=== PATIENT | male | born 1945 | race Caucasian/White ===

== ENCOUNTER 2016-11-23 15:48 | Observation (INO) | payer MEDICARE, OTHER ==
[~2016-11-23 15:48] MED LIST: ASPI325T PO; CHOL1CAP32 PO; HYDR-2768 PO; HYDR25TA5 PO; MAGN400C2 PO; MEDR4PAK3 PO; METH750T2 PO; OMEP20TA PO; PERC5TAB12 PO; POTA-163 PO; PRAV20 PO; PRAV20TA2 PO; PRIL20CA PO; SERT-129 PO; SERT25TA83 PO
[2016-11-23 18:15] VITALS: BP 154/70; PULSE 55; RESP 18; TEMP 99; O2SAT 96
[2016-11-23] MEDS ORDERED: HYDROmorphone HCL PF 1 MG/ML VIAL IV PRN (19:00)
[2016-11-23] MEDS ORDERED: ONDANSETRON HCL 4 MG/2 ML VIAL IVP PRN (19:00)
[2016-11-23] MEDS ORDERED: ACETAMINOPHEN 325 MG TAB PO PRN ×2 (19:00)
[2016-11-23] MEDS ORDERED: cloNIDine HCL 0.1 MG TAB PO PRN (19:00)
[2016-11-23] MEDS ORDERED: RESP: ALBUTEROL 0.63 MG/3 ML NEB (PRN) NEB (19:00)
[2016-11-23] MEDS ORDERED: SENNOSIDES 8.6 MG TAB PO PRN (19:00)
[2016-11-23] MEDS ORDERED: NALOXONE HCL 0.4 MG/ML AMP IV PRN (19:00)
[2016-11-23] MEDS ORDERED: SODIUM CHLORIDE 0.9% FLUSH 10 ML FLUSH IV FLUSH PRN (19:00)
[2016-11-23] MEDS ORDERED: ENALAPRILAT 1.25 MG/ML VIAL IV PRN (19:00)
[2016-11-23 20:00] VITALS: BP 141/65; PULSE 57; RESP 18; TEMP 97.3; O2SAT 94
[2016-11-23] MEDS: SODIUM CHLORIDE 0.9% FLUSH 10 ML FLUSH IV FLUSH SCH (20:09)
[2016-11-23] MEDS ORDERED: DIAZEPAM 5 MG TAB PO PRN (20:45)
[2016-11-23] MEDS ORDERED: HYDROmorphone HCL PF 1 MG/ML VIAL IV PUSH ONE (20:45)
[2016-11-23] MEDS: DOCUSATE SODIUM 50 MG/SENNA 8.6 MG TAB PO SCH (21:00)
[2016-11-23] MEDS ORDERED: PRAVASTATIN SOD 20 MG TAB PO SCH (21:00)
[2016-11-23 21:48] VITALS: O2SAT 92
[2016-11-24] VITALS (8 sets, daily range): BP systolic 112–137; BP diastolic 58–67; PULSE 60–68; RESP 16–21; TEMP 97–98.5; O2SAT 92–96
[2016-11-24] MEDS: PRAVASTATIN SOD 40 MG TAB PO SCH ×2 (00:08→20:35)
[2016-11-24] MEDS: SERTRALINE HCL 100 MG TAB PO SCH ×2 (00:08→20:35)
[2016-11-24] MEDS: MAGNESIUM OXIDE 400 MG TAB PO SCH (08:21)
[2016-11-24] MEDS: CHOLECALCIFEROL (VIT D3) 1000 UNIT TAB PO SCH (08:21)
[2016-11-24] MEDS: DOCUSATE SODIUM 50 MG/SENNA 8.6 MG TAB PO SCH ×2 (08:21→20:36)
[2016-11-24] MEDS: HYDROCHLOROTHIAZIDE 25 MG TAB PO SCH (08:22)
[2016-11-24] MEDS: PANTOPRAZOLE SOD 20 MG DELAYED RELEASE TAB PO SCH (08:22)
[2016-11-24] MEDS: POTASSIUM CHLORIDE 20 MEQ CONTROLLED RELEASE TAB PO SCH (08:22)
[2016-11-24] MEDS: SODIUM CHLORIDE 0.9% FLUSH 10 ML FLUSH IV FLUSH SCH ×2 (08:30→20:36)
[2016-11-24 08:49] LABS: BASOPHIL % 0.5 % (0.0-2.0); EOSINOPHIL # 0.3 TH/MM3 (0-0.4); EOSINOPHIL % 3.3 % (0.0-4.0); HEMATOCRIT 38.9 % (39.0-51.0); HEMO FLAGS DIFF FINAL; LYMPH % 31.8 % (9.0-44.0); LYMPHOCYTE # 2.7 TH/MM3 (1.0-4.8); MEAN CORPUSCULAR HEMOGLOBIN 31.1 PG (27.0-34.0); MEAN CORPUSCULAR HGB CONC 34.2 % (32.0-36.0); MONO % 7.1 % (0.0-8.0); NEUT % 57.3 % (16.0-70.0); PLATELET COUNT 142 TH/MM3 (150-450); RED BLOOD COUNT 4.28 MIL/MM3 (4.50-5.90); RED CELL DISTRIBUTION WIDTH 14.2 % (11.6-17.2); WHITE BLOOD COUNT 8.7 TH/MM3 (4.0-11.0)
--- NOTE | 2016-11-24 08:52 | HHI.HP ---
HPI Service [facility] Hospitalists Primary Care Physician Unknown Admission Diagnosis Diagnoses: (1) T9 vertebral fracture (2) Acute midline thoracic back pain (3) Benign hypertension (4) Hyperlipidemia Chief Complaint: Mid back pain Travel History International Travel<30 Days: No Contact w/Intl Traveler <30 Da: No Traveled to Known Affected Are: No History of Present Illness -year-old male with a history of hyperlipidemia, hypertension, previous history of prostate cancer was brought to the ED and subsequently admitted to [facility] for evaluation of an acute onset of mid low back pain status post mechanical fall, from the top of her refrigerator 7 feet down to the ground. Patient states he has crv8uvia the ladder then got on the top of the refrigerator in order to clean a dirty vent. He lost his balance and fell down leading on his mid back without any head trauma. He rated the pain 10/10 in intensity. The fall was witnessed by patient's . Patient was able to get up and walked. He had no bladder or bowel dysfunction. The thoracic lumbar spine CT in the ED reveals a small acute horizontal nondisplaced fracture of the anterior superior T9 vertebral body. Patient was seen this morning, and states he was unable to walk on his own and continues to complain of severe low back pain. Review of Systems Except as stated in HPI: all other systems reviewed are Neg Past Family Social History Past Medical History Asthma: Yes Cardiovascular Problems: Yes (htn) High Cholesterol: Yes Cerebrovascular Accident: Yes GERD: Yes Hiatal Hernia: Yes Hypertension: Yes Inguinal Hernia: Yes Medical other: Yes (prostate CA) Respiratory: Yes (asthma) Immunizations Current: Yes Radiation Therapy: Yes (2010) Sleep Apnea: Yes \ \ \ Past Surgical History Abdominal Surgery: Yes (hernia) Genitourinary Surgery: Yes (prostate radiation) Tonsillectomy: Yes Other Surgery: Yes (vika inguinal hernia) \ \ Reported Medications Magnesium Oxide 400 Mg Cap 400 Mg PO DAILY Sertraline (Sertraline HCl) 100 Mg Tab 100 Mg PO DAILY Pravastatin 20 Mg Tab 20 Mg PO DAILY Aspirin 325 Mg Tab 325 Mg PO DAILY D3-1000 (Cholecalciferol) 1,000 Unit Cap 1,000 Units PO BID Potassium Chloride ER (Potassium Chloride) 20 Meq Tab 20 Meq PO BID Omeprazole 20 Mg Tab 20 Mg PO DAILY Hydrochlorothiazide 25 Mg Tab 25 Mg PO DAILY Allergies: Coded Allergies: No Known Allergies (Unverified , 03/24/16) Family History Father had Alzheimer disease Social History Alcohol Use: No Tobacco Use: No Substance Use: No \ \ Physical Exam Vital Signs Vital Signs Date Time Temp Pulse Resp B/P Pulse Ox O2 Delivery O2 Flow Rate FiO2 11/24/16 08:00 97.7 68 18 137/64 95 11/24/16 06:32 97.0 60 21 122/60 95 11/24/16 00:00 98.1 60 20 112/58 94 11/23/16 21:48 92 21 11/23/16 20:00 97.3 57 18 141/65 94 11/23/16 18:15 99.0 55 18 154/70 96 Physical Exam GENERAL: This is a well-nourished, well-developed patient, in no apparent distress. SKIN: No rashes, ecchymoses or lesions. Cool and dry. HEAD: Atraumatic. Normocephalic. No temporal or scalp tenderness. EYES: Pupils equal round and reactive. Extraocular motions intact. No scleral icterus. No injection or drainage. ENT: Nose without bleeding, purulent drainage or septal hematoma. Throat without erythema, tonsillar hypertrophy or exudate. Uvula midline. Airway patent. NECK: Trachea midline. No JVD or lymphadenopathy. Supple, nontender, no meningeal signs. CARDIOVASCULAR: Regular rate and rhythm without murmurs, gallops, or rubs. RESPIRATORY: Clear to auscultation. Breath sounds equal bilaterally. No wheezes , rales, or rhonchi. GASTROINTESTINAL: Abdomen soft, non-tender, nondistended. No hepato-splenomegaly , or palpable masses. No guarding. MUSCULOSKELETAL: Extremities without clubbing, cyanosis, or edema. No joint tenderness, effusion, or edema noted. No calf tenderness. Negative Homans sign bilaterally. NEUROLOGICAL: Awake and alert. Cranial nerves II through XII intact. Motor and sensory grossly within normal limits. Five out of 5 muscle strength in all muscle groups. Normal speech. Assessment and Plan Problem List: (1) T9 vertebral fracture ICD Code: S22.079A Status: Acute (2) Benign hypertension ICD Code: I10 Status: Acute (3) Hyperlipidemia ICD Code: E78.5 Status: Acute (4) Acute midline thoracic back pain ICD Code: M54.6 Status: Acute Assessment and Plan 70-year-old man with T9 vertebral body fracture Acute midline thoracic back pain CT thoracic spine noted and reviewed by me with finding of a small acute horizontal nondisplaced fracture of the anterior superior T9 vertebral body CT lumbar spine noted and reviewed by me without any acute fracture Neurosurgery consultation pending Nonoperable and conservative management Start Neurontin, Flexeril when necessary and Pamelor TLSO brace, continue parenteral pain medication/analgesic/anti emetic PT consult to treat and eval Mild hypokalemia Replace electrolytes and monitor Hypertension, hyperlipidemia Continue outpatient medications DVT prophylaxis: Bilateral SCDs Code Status Full code Discussed Condition With Patient J Carlos Nazario MD Nov 24, 2016 08:52
[2016-11-24 09:15] LABS: ANION GAP 10 MEQ/L (5-15); AST (GOT) 47 U/L (15-37); BICARBONATE 29.9 MEQ/L (21.0-32.0); BLOOD UREA NITROGEN 23 MG/DL (7-18); CHLORIDE 100 MEQ/L (98-107); GLOMERULAR FILTRATION RATE 60 ML/MIN (>89); POTASSIUM 3.4 MEQ/L (3.5-5.1); SODIUM (NA) 140 MEQ/L (136-145)
[2016-11-24 09:20] LABS: ALKALINE PHOSPHATASE 70 U/L (45-117); ALT (GPT) 62 U/L (12-78); CREATINE KINASE 180 U/L (39-308); TOTAL BILIRUBIN ADULT 0.6 MG/DL (0.2-1.0)
[2016-11-24] MEDS ORDERED: MORPHINE SULFATE 4 MG/ML INJ IV PUSH PRN (10:45)
--- NOTE | 2016-11-24 10:47 | PD.CONS ---
[facility] Service Neurosurgery Consult Requested By [facility] Reason for Consult Status post fall with thoracic fracture Primary Care Physician Unknown History of Present Illness This is a 17 year-old male with history of hyperlipidemia, hypertension, prostate cancer, was brought to [facility] emergency room for evaluation of an acute onset of mid low back pain. He reports that he suffered a severe fall from the top of the refrigerator 7 feet down to the ground. Apparently he climbed the ladder then got on the top of the refrigerator in order to clean a dirty vent. He lost his balance and fell down leading on his mid back. He denies any head trauma. No loss of consciousness no seizure activity reported no incontinence of stool or urine. He developed severe pain on the medial thoracic region He rated the pain 10/10 in intensity. The fall was witnessed by patient's . Apparently he was able to get up and walked. He had no bladder or bowel dysfunction. The thoracic lumbar spine CT showed a small acute horizontal nondisplaced fracture of the anterior superior T9 vertebral body. A neurosurgical consultation was requested \ Physical Exam Vital Signs Vital Signs Date Time Temp Pulse Resp B/P Pulse Ox O2 Delivery O2 Flow Rate FiO2 11/24/16 08:00 97.7 68 18 137/64 95 11/24/16 06:32 97.0 60 21 122/60 95 11/24/16 00:00 98.1 60 20 112/58 94 11/23/16 21:48 92 21 11/23/16 20:00 97.3 57 18 141/65 94 11/23/16 18:15 99.0 55 18 154/70 96 Physical Exam GENERAL: This is a well-nourished, well-developed patient, in no apparent distress. SKIN: No rashes, ecchymoses or lesions. Cool and dry. HEAD: Atraumatic. Normocephalic. No temporal or scalp tenderness. EYES: Pupils equal round and reactive. Extraocular motions intact. No scleral icterus. No injection or drainage. ENT: Nose without bleeding, purulent drainage or septal hematoma. Throat without erythema, tonsillar hypertrophy or exudate. Uvula midline. Airway patent. NECK: Trachea midline. No JVD or lymphadenopathy. Supple, nontender, no meningeal signs. CARDIOVASCULAR: Regular rate and rhythm without murmurs, gallops, or rubs. RESPIRATORY: Clear to auscultation. Breath sounds equal bilaterally. No wheezes , rales, or rhonchi. GASTROINTESTINAL: Abdomen soft, non-tender, nondistended. No hepato-splenomegaly , or palpable masses. No guarding. MUSCULOSKELETAL: Extremities without clubbing, cyanosis, or edema. No joint tenderness, effusion, or edema noted. No calf tenderness. Negative Homans sign bilaterally. NEUROLOGICAL: Awake and alert. Cranial nerves II through XII intact. Motor and sensory grossly within normal limits. Five out of 5 muscle strength in all muscle groups. Normal speech. Assessment and Plan Problem List: (1) T9 vertebral fracture ICD Code: S22.079A Status: Acute (2) Benign hypertension ICD Code: I10 Status: Acute (3) Hyperlipidemia ICD Code: E78.5 Status: Acute (4) Acute midline thoracic back pain ICD Code: M54.6 Status: Acute Assessment and Plan 70-year-old man with T9 vertebral body fracture Acute midline thoracic back pain CT thoracic spine noted and reviewed by me with finding of a small acute horizontal nondisplaced fracture of the anterior superior T9 vertebral body CT lumbar spine noted and reviewed by me without any acute fracture Neurosurgery consultation pending Nonoperable and conservative management Start Neurontin, Flexeril when necessary and Pamelor TLSO brace, continue parenteral pain medication/analgesic/anti emetic PT consult to treat and eval Review of Systems Constitutional: DENIES: Diaphoretic episodes, Fatigue, Fever, Weight gain, Weight loss, Chills, Dizziness, Change in appetite, Night Sweats Endocrine: DENIES: Heat/cold intolerance, Polydipsia, Polyuria, Polyphagia Eyes: DENIES: Blurred vision, Diplopia, Eye inflammation, Eye pain, Vision loss , Photosensitivity, Double Vision Ears, nose, mouth, throat: DENIES: Tinnitus, Hearing loss, Vertigo, Nasal discharge, Oral lesions, Throat pain, Hoarseness, Ear Pain, Running Nose, Epistaxis, Sinus Pain, Toothache, Odynophagia Respiratory: DENIES: Apneas, Cough, Snoring, Wheezing, Hemoptysis, Sputum production, Shortness of breath Cardiovascular: DENIES: Chest pain, Palpitations, Syncope, Dyspnea on Exertion , PND, Lower Extremity Edema, Orthopnea, Claudication Gastrointestinal: DENIES: Abdominal pain, Black stools, Bloody stools, Constipation, Diarrhea, Nausea, Vomiting, Difficulty Swallowing, Anorexia Musculoskeletal: COMPLAINS OF: Joint pain, Back pain, DENIES: Muscle aches, Stiffness, Joint Swelling, Neck pain Integumentary: DENIES: Abnormal pigmentation, Nail changes, Pruritus, Rash Hematologic/lymphatic: DENIES: Bruising, Lymphadenopathy Immunologic/allergic: DENIES: Eczema, Urticaria Neurologic: DENIES: Abnormal gait, Headache, Localized weakness, Paresthesias, Seizures, Speech Problems, Tremor, Poor Balance Past Family Social History Allergies: Coded Allergies: No Known Allergies (Unverified , 03/24/16) Past Medical History Asthma: Yes Cardiovascular Problems: Yes (htn) High Cholesterol: Yes Cerebrovascular Accident: Yes GERD: Yes Hiatal Hernia: Yes Hypertension: Yes Inguinal Hernia: Yes Medical other: Yes (prostate CA) Respiratory: Yes (asthma) Immunizations Current: Yes Radiation Therapy: Yes (2010) Sleep Apnea: Yes \ \ \ Past Surgical History Hernia repair prostate radiation Tonsillectomy: vika inguinal hernia repair Reported Medications Magnesium Oxide 400 Mg Cap 400 Mg PO DAILY Sertraline (Sertraline HCl) 100 Mg Tab 100 Mg PO DAILY Pravastatin 20 Mg Tab 20 Mg PO DAILY Aspirin 325 Mg Tab 325 Mg PO DAILY D3-1000 (Cholecalciferol) 1,000 Unit Cap 1,000 Units PO BID Potassium Chloride ER (Potassium Chloride) 20 Meq Tab 20 Meq PO BID Omeprazole 20 Mg Tab 20 Mg PO DAILY Hydrochlorothiazide 25 Mg Tab 25 Mg PO DAILY Active Ordered Medications Current Medications Albuterol Sulfate (Albuterol Neb) 0.63 mg Q4HR NEB PRN NEB sob; Start 11/23/16 at 19:00 Enalaprilat (Vasotec Inj) 1.25 mg Q6H PRN IV SBP> OR = 180, DBP> OR = 100; Start 11/23/16 at 19:00 Clonidine (Catapres) 0.1 mg Q6H PRN PO SBP> OR = 180, DBP> OR = 100; Start 11/23 at 19:00 Sodium Chloride (NS Flush) 2 ml UNSCH PRN IV FLUSH FLUSH AFTER USING IV ACCESS ; Start 11/23/16 at 19:00 Sodium Chloride (NS Flush) 2 ml BID IV FLUSH Last administered on 11/23/16 20: 09; Start 11/23/16 at 21:00 Acetaminophen (Tylenol) 650 mg Q4H PRN PO TEMP > 100.4; Start 11/23/16 at 19:00 Ondansetron HCl (Zofran Inj) 4 mg Q6H PRN IVP NAUSEA OR VOMITING; Start at 19:00 Acetaminophen (Tylenol) 650 mg Q6H PRN PO PAIN SCALE 1 TO 2; Start 11/23/16 at 19:00 Oxycodone HCl (Roxicodone) 10 mg Q4H PRN PO PAIN SCALE 6 TO 10 Last administered on 11/24/16 12:19; Start 11/23/16 at 19:00 Hydromorphone HCl (Dilaudid Pf Inj) 0.2 mg Q3H PRN IV BREAKTHROUGH PAIN; Start 11/23/16 at 19:00 Oxycodone HCl (Roxicodone) 5 mg Q4H PRN PO PAIN SCALE 3 TO 5 Last administered on 11/23/16 20:22; Start 11/23/16 at 19:00 Naloxone HCl (Narcan Inj) 0.4 mg UNSCH PRN IV SEE LABEL COMMENTS; Start at 19:00 Senna/Docusate Sodium (Doris-Colace) 1 tab BID PO Last administered on 11/24/16 08:21; Start 11/23/16 at 21:00 Sennosides (Senokot) 17.2 mg Q12H PRN PO MODERATE - SEVERE CONSTIPATION; Start 11/23/16 at 19:00 Diazepam (Valium) 5 mg Q8H PRN PO MUSCLE SPASM Last administered on 11/24/16 08 :25; Start 11/23/16 at 20:45; Stop 11/24/16 at 10:47; Status DC Hydrochlorothiazide (Hydrodiuril) 25 mg DAILY PO Last administered on 11/24/16 08:22; Start 11/24/16 at 09:00 Potassium Chloride (KCl) 40 meq DAILY PO Last administered on 11/24/16 08:22; Start 11/24/16 at 09:00 Pravastatin Sodium (Pravachol) 40 mg HS PO ; Start 11/23/16 at 21:00; Stop at 21:00; Status DC Sertraline HCl (Zoloft) 100 mg HS PO Last administered on 11/24/16 00:08; Start 11/23/16 at 21:00 Cholecalciferol (Vitamin D3) 2,000 units DAILY PO Last administered on 08:21; Start 11/24/16 at 09:00 Magnesium Oxide (Mag-Ox) 400 mg DAILY PO Last administered on 11/24/16 08:21; Start 11/24/16 at 09:00 Pantoprazole Sodium (Protonix) 20 mg DAILY PO Last administered on 11/24/16 08: 22; Start 11/24/16 at 09:00 Hydromorphone HCl (Dilaudid Pf Inj) 0.5 mg ONCE ONCE IV PUSH Last administered on 11/24/16 00:09; Start 11/23/16 at 20:45; Stop 11/23/16 at 20:57; Status DC Pravastatin Sodium (Pravachol) 40 mg HS PO Last administered on 11/24/16 00:08 ; Start 11/23/16 at 21:00 Aspirin (Aspirin) 325 mg DAILY PO ; Start 11/25/16 at 09:00 Morphine Sulfate (Morphine Inj) 2 mg Q8H PRN IV PUSH BREAKTHROUGH PAIN; Start 11/24/16 at 10:45 Gabapentin (Neurontin) 100 mg TID PO Last administered on 11/24/16 12:49; Start 11/24/16 at 13:00 Cyclobenzaprine HCl (Flexeril) 5 mg Q8H PRN PO muscle spams; Start 11/24/16 at 10:45 Nortriptyline HCl (Pamelor) 25 mg HS PO ; Start 11/24/16 at 21:00 Family History Father had Alzheimer disease Social History Social History Alcohol Use: No Tobacco Use: No Substance Use: No Physical Exam Vital Signs Vital Signs Date Time Temp Pulse Resp B/P Pulse Ox O2 Delivery O2 Flow Rate FiO2 11/24/16 08:00 97.7 68 18 137/64 95 11/24/16 06:32 97.0 60 21 122/60 95 11/24/16 00:00 98.1 60 20 112/58 94 11/23/16 21:48 92 21 11/23/16 20:00 97.3 57 18 141/65 94 11/23/16 18:15 99.0 55 18 154/70 96 Physical Exam Mr Panchal is alert, awake and oriented to time, place and person. Speech is fluent. Cranial nerve examination demonstrates the pupils to be equal, round, and reactive to light. Extra-ocular movements are intact. Facial motor and sensory function are normal and symmetrical. Gross hearing is decreased, bilaterally. The uvula is midline and elevates symmetrically with the soft palate. Sternocleidomastoid and trapezius muscles have normal and symmetrical strength. Other cranial nerves are intact. Neck is soft and supple. Cervical spine has a decreased range of motion in anterior flexion, extension, lateral bending, and rotation without pain. There is no tenderness to palpation to the spinous processes or paraspinal muscles. Muscle testing reveals normal bulk and tone overall without rigidity, spasticity , fasciculations, or atrophy. Muscle strength is 5/5 in all muscle groups of both upper extremities including deltoid, biceps, triceps, brachioradialis, wrist extension and can top setter. In the lower extremities, strength is 5/5 in both iliopsoas, quadriceps, hamstrings, plantar flexion, dorsiflexion, and extensor hallicus longus. Sensory examination is intact to light touch and sharp/dull discrimination in both the upper and lower extremities, symmetrically. Deep tendon reflexes are 2+ and symmetrical in the biceps, triceps, and brachioradialis, bilaterally, in the upper extremities. In the lower extremities , the patellar and Achilles are 2+, bilaterally. There is a bilateral plantar flexion response. Hoffmanns sign is negative. There is no clonus or other abnormal reflexes noted. Cerebellar examination is intact to [id number] test, rapid rhythmic alternating motion. There is no dysmetria, dysdiadochokinesia, truncal ataxia Laboratory Laboratory Tests Test 11/24/16 07:14 White Blood Count 8.7 Red Blood Count 4.28 Hemoglobin 13.3 Hematocrit 38.9 Mean Corpuscular Volume 91.0 Mean Corpuscular Hemoglobin 31.1 Mean Corpuscular Hemoglobin 34.2 Concent Red Cell Distribution Width 14.2 Platelet Count 142 Mean Platelet Volume 9.3 Neutrophils (%) (Auto) 57.3 Lymphocytes (%) (Auto) 31.8 Monocytes (%) (Auto) 7.1 Eosinophils (%) (Auto) 3.3 Basophils (%) (Auto) 0.5 Neutrophils # (Auto) 5.0 Lymphocytes # (Auto) 2.7 Monocytes # (Auto) 0.6 Eosinophils # (Auto) 0.3 Basophils # (Auto) 0.0 CBC Comment DIFF FINAL Differential Comment Sodium Level 140 Potassium Level 3.4 Chloride Level 100 Carbon Dioxide Level 29.9 Anion Gap 10 Blood Urea Nitrogen 23 Creatinine 1.20 Estimat Glomerular Filtration 60 Rate Random Glucose 116 Calcium Level 8.8 Total Bilirubin 0.6 Aspartate Amino Transf 47 (AST/SGOT) Alanine Aminotransferase 62 (ALT/SGPT) Alkaline Phosphatase 70 Total Creatine Kinase 180 Total Protein 6.6 Albumin 3.6 Result Diagram: 11/24/16 0714 11/24/16 0714 Attending Statement Neuro. I have reviewed his clinical and radiological findings. Start neuro checks in a serial fashion. TLSO brace fpr stabilization. Recommend follow up MRI of thoracic spine Pulmonary. aggressive pulmonary toilette, nasotracheal suction, and breathing treatments with nebulizers. PT and OT evaluation Nutrition. Oral diet Renal. monitor closely urine output, BUN and creatinine Endocrine. Monitor serial Acu checks and SSI as needed in detail ID monitor for signs of infection Protonix for stress ulcer prophylaxis Zaid hose and SCD's for DVT prophylaxis Tavo Hunter MD Nov 24, 2016 10:47
[2016-11-24] MEDS: GABAPENTIN 100 MG CAP PO SCH ×2 (12:49→17:37)
[2016-11-24] MEDS ORDERED: GADODIAMIDE PF 287 MG/ML 20 ML VIAL (for RAD MRI) IV ONE (16:21)
[2016-11-24] MEDS: CYCLOBENZAPRINE HCL 10 MG TAB PO PRN (16:44)
--- NOTE | 2016-11-24 20:07 | RADRPT ---
EXAM DATE/TIME: 11/24/2016 16:00 [facility] COMPARISON: CT THORACIC SPINE W/O CONTRAST, November 23, 2016, 12:35. INDICATIONS : Back pain. CONTRAST: 20 cc Omniscan (gadodiamide) IV MEDICAL HISTORY : Carcinoma, prostate. Hypercholesterolemia. SURGICAL HISTORY : Tonsillectomy. Hernia repair. ENCOUNTER: Initial ACUITY: 1 day PAIN SCORE: 5/10 LOCATION: [facility] TECHNIQUE: Multiplanar multisequence MRI of the thoracic spine was performed. FINDINGS: The examination was performed to characterize multiple findings as seen on CT thoracic spine includin g superior endplate compression deformities of T3, T5, and T9 as well as a rounded lucency in the pos terior T8 vertebral body. There is T2 prolongation in the superior endplates of T1, T2, T3, and anterior T9. There is evidence of some enhancement on the postcontrast images in this same areas. The findings suggest acute or puckett bacute compression deformities at these levels. At the T5 level, there is no signal abnormality seen in the superior endplate compression deformity s uggesting that this is old. At T8, there is a rounded area of signal abnormality in the posterior one third of vertebral body patience suring 1.3 cm characterize by mild decrease signal on T1, fairly intense enhancement on postcontrast and with moderate T2 prolongation. At T8-9, there is a right parasagittal protrusion of the disc whi ch causes focal indentation on the thecal sac and some deviation of the thoracic cord. No signal abn ormality within the substance of the cord and no abnormal enhancement within the deviated cord. Epid ural impression measures 5 mm in AP dimension. The thoracic cord has a normal configuration and no abnormal areas of enhancement seen. CONCLUSION: 1. T2 prolongation and enhancement superior end plates of T1, T2, T3, and T9 suggests acute or subacu te compression deformities. 2. The T5 compression deformity has normal signal characteristics and is probably old. 3. There are 2 abnormalities at the T8-9 level, the rounded lucent lesion in the posterior T8 vertebr al body demonstrates both T2 prolongation and significant contrast enhancement. There is also a righ t parasagittal protrusion of the disc at T8-9 which does cause impression on the cord with deviation, but no narrowing of the cord diameter. The enhancing area is located to the left of the protrusion. The patient has history of prostate cancer in the enhancing lesion could represent a metastatic dep osit. The T8-9 disc protrusion may be acute and associated with the acute compression deformity of s uperior endplate of T9. Scout Antonio MD on November 24, 2016 at 19:49 Board Certified Radiologist. This report was verified electronically.
[2016-11-24] MEDS ORDERED: NORTRIPTYLINE HCL 25 MG CAP PO SCH (21:00)
[2016-11-25] VITALS: BP 163/75; PULSE 62; RESP 18; TEMP 99.2; O2SAT 98
[2016-11-25 04:00] VITALS: BP 139/67; PULSE 65; RESP 20; TEMP 97.7; O2SAT 91
[2016-11-25 08:00] VITALS: BP 159/67; PULSE 75; RESP 18; TEMP 97.1; O2SAT 94
[2016-11-25 08:20] LABS: BICARBONATE 31.3 MEQ/L (21.0-32.0); POTASSIUM 3.1 MEQ/L (3.5-5.1)
[2016-11-25] MEDS: HYDROCHLOROTHIAZIDE 25 MG TAB PO SCH (08:49)
[2016-11-25] MEDS: POTASSIUM CHLORIDE 20 MEQ CONTROLLED RELEASE TAB PO SCH (08:49)
[2016-11-25] MEDS: MAGNESIUM OXIDE 400 MG TAB PO SCH (08:49)
[2016-11-25] MEDS: CYCLOBENZAPRINE HCL 10 MG TAB PO PRN (08:50)
[2016-11-25] MEDS: GABAPENTIN 100 MG CAP PO SCH (08:50)
[2016-11-25] MEDS: PANTOPRAZOLE SOD 20 MG DELAYED RELEASE TAB PO SCH (08:50)
[2016-11-25] MEDS: CHOLECALCIFEROL (VIT D3) 1000 UNIT TAB PO SCH (08:50)
[2016-11-25] MEDS: SODIUM CHLORIDE 0.9% FLUSH 10 ML FLUSH IV FLUSH SCH (08:51)
[2016-11-25] MEDS: DOCUSATE SODIUM 50 MG/SENNA 8.6 MG TAB PO SCH (08:51)
[2016-11-25] MEDS ORDERED: ASPIRIN 325 MG TAB PO SCH (09:00)
[2016-11-25 11:51] VITALS: BP 146/76; PULSE 66; RESP 18; TEMP 97.4; O2SAT 93
--- NOTE | 2016-11-25 11:56 | HHI.PR ---
Subjective Remarks Follow-up T9 vertebral body fracture 11/25/16-patient seen and examined, reports significant improvement of mid low back pain. Patient able to ambulate without any assistance. States he would like to go home. Case discussed with neurosurgery Dr. Hunter this morning. Objective Vitals Vital Signs Date Time Temp Pulse Resp B/P Pulse Ox O2 Delivery O2 Flow Rate FiO2 11/25/16 08:00 97.1 75 18 159/67 94 11/25/16 04:00 97.7 65 20 139/67 91 11/25/16 00:00 99.2 62 18 163/75 98 11/24/16 20:00 98.5 66 18 128/67 92 11/24/16 19:56 96 21 11/24/16 15:52 97.5 65 16 122/61 96 11/24/16 12:00 97.5 62 18 135/61 93 I/O 11/24/16 11/24/16 11/24/16 11/25/16 11/25/16 11/25/16 07:00 15:00 23:00 07:00 15:00 23:00 Intake Total 240 ml 380 ml Output Total 175 ml 600 ml Balance -175 ml -360 ml 380 ml Intake Oral 240 ml 380 ml Output Urine Total 175 ml 600 ml # Voids 2 1 # Bowel Movements 0 0 Result Diagram: 11/24/16 0714 11/25/16 0630 Imaging Last Impressions Thoracic Spine MRI 11/24/16 0000 Signed Impressions: Service Date/Time: Thursday, November 24, 2016 16:00 - CONCLUSION: 1. T2 prolongation and enhancement superior end plates of T1, T2, T3, and T9 suggests acute or subacute compression deformities. 2. The T5 compression deformity has normal signal characteristics and is probably old. 3. There are 2 abnormalities at the T8-9 level, the rounded lucent lesion in the posterior T8 vertebral body demonstrates both T2 prolongation and significant contrast enhancement. There is also a right parasagittal protrusion of the disc at T8-9 which does cause impression on the cord with deviation, but no narrowing of the cord diameter. The enhancing area is located to the left of the protrusion. The patient has history of prostate cancer in the enhancing lesion could represent a metastatic deposit. The T8-9 disc protrusion may be acute and associated with the acute compression deformity of superior endplate of T9. Scout Antonio MD Objective Remarks GENERAL: NAD SKIN: Warm and dry. HEAD: Normocephalic. EYES: No scleral icterus. No injection or drainage. NECK: Supple, trachea midline. No JVD or lymphadenopathy. CARDIOVASCULAR: Regular rate and rhythm without murmurs, gallops, or rubs. RESPIRATORY: Breath sounds equal bilaterally. No accessory muscle use. GASTROINTESTINAL: Abdomen soft, non-tender, nondistended. MUSCULOSKELETAL: No cyanosis, or edema. BACK: mildly tender without obvious deformity. No CVA tenderness. Procedures none A/P Problem List: (1) T9 vertebral fracture ICD Code: S22.079A Status: Acute (2) Benign hypertension ICD Code: I10 Status: Acute (3) Hyperlipidemia ICD Code: E78.5 Status: Acute (4) Acute midline thoracic back pain ICD Code: M54.6 Status: Acute Assessment and Plan 70-year-old man with T9 vertebral body fracture Acute midline thoracic back pain CT thoracic spine with finding of a small acute horizontal nondisplaced fracture of the anterior superior T9 vertebral body CT lumbar spine without any acute fracture Neurosurgery consultation appreciated Nonoperable and conservative management Continue Neurontin, Flexeril when necessary and Pamelor as patient seems to improve TLSO brace, continue parenteral pain medication/analgesic/anti emetic PT to treat and eval Mild hypokalemia Replace electrolytes and monitor Hypertension, hyperlipidemia Continue outpatient medications DVT prophylaxis: Bilateral SCDs Discharge Planning Discharge patient to home Condition on discharge: Improved Regular Diet as tolerated Ad Verna activity Rx written: see EMR Follow-up with primary care physician in one week Neurosurgery when necessary J Carlos Nazario MD Nov 25, 2016 11:56
[2016-11-25] MEDS ORDERED: NORT25CA PO (11:58)
[2016-11-25] MEDS ORDERED: GABA100C4 PO (11:58)
[2016-11-25] MEDS ORDERED: PERI8.6T PO (11:58)
[2016-11-25] MEDS ORDERED: CYCL1TAB29 PO (11:58)
[2016-11-25] MEDS ORDERED: HYDR-3288 PO (11:58)
[2016-11-25] MEDS ORDERED: BEDSIDE COMMODE1 MI1 (12:06)
[2016-11-25] MEDS ORDERED: RAISED TOILET S1 MI1 (12:06)
--- NOTE | 2016-11-25 12:07 | HHI.FF ---
Face to Face Verification Diagnosis: (1) T9 vertebral fracture (2) Acute midline thoracic back pain Physical Therapy Order: Evaluate and Treat I have seen patient Donovan Panchal on 11/25/16. My clinical findings support the need for the requested home health care services because: Deconditioned w/ increased weakness I certify that my clinical findings support that this patient is homebound because: Unsteady gait/balance J Carlos Nazario MD Nov 25, 2016 12:07
--- NOTE | 2016-11-25 13:10 | HHI.NSPN ---
([facility]) Note Status Status: Progress Note ([facility]) Interval History Interval History This is a 17 year-old male with history of hyperlipidemia, hypertension, prostate cancer, was brought to [facility] emergency room for evaluation of an acute onset of mid low back pain. He reports that he suffered a severe fall from the top of the refrigerator 7 feet down to the ground. Apparently he climbed the ladder then got on the top of the refrigerator in order to clean a dirty vent. He lost his balance and fell down leading on his mid back. He denies any head trauma. No loss of consciousness no seizure activity reported no incontinence of stool or urine. He developed severe pain on the medial thoracic region He rated the pain 10/10 in intensity. The fall was witnessed by patient's . Apparently he was able to get up and walked. He had no bladder or bowel dysfunction. The thoracic lumbar spine CT showed a small acute horizontal nondisplaced fracture of the anterior superior T9 vertebral body. A neurosurgical consultation was requested 11/25: back pain better today, ambulated with PT, complains his TLSO is too small ([facility] Card) Labs, Micro, & Vital Signs Results Date Time Temp Pulse Resp B/P Pulse Ox O2 Delivery O2 Flow Rate FiO2 11/25/16 11:51 97.4 66 18 146/76 93 11/25/16 08:00 97.1 75 18 159/67 94 11/25/16 04:00 97.7 65 20 139/67 91 11/25/16 00:00 99.2 62 18 163/75 98 11/24/16 20:00 98.5 66 18 128/67 92 11/24/16 19:56 96 21 11/24/16 15:52 97.5 65 16 122/61 96 11/25/16 07:00 Intake Total 620 ml Output Total 600 ml Balance 20 ml Constitutional Vital Signs Date Time Temp Pulse Resp B/P Pulse Ox O2 Delivery O2 Flow Rate FiO2 11/25/16 11:51 97.4 66 18 146/76 93 11/25/16 08:00 97.1 75 18 159/67 94 11/25/16 04:00 97.7 65 20 139/67 91 11/25/16 00:00 99.2 62 18 163/75 98 11/24/16 20:00 98.5 66 18 128/67 92 11/24/16 19:56 96 21 11/24/16 15:52 97.5 65 16 122/61 96 11/25/16 07:00 Intake Total 620 ml Output Total 600 ml Balance 20 ml ([facility] Card) Review of Systems/Exam Exam The patient is alert, awake and oriented to time, place and person. Speech is fluent. Cranial nerve examination: pupils to be equal, round, and reactive to light. Extra-ocular movements are intact. Facial motor are normal and symmetrical. Neck is soft and supple. Muscle strength is 5/5 in all muscle groups of both upper extremities including deltoid, biceps, triceps and interface engineer. In the lower extremities, strength is 5/5 in both iliopsoas, quadriceps, hamstrings, plantar flexion, dorsiflexion, and extensor hallicus longus. Sensory examination is intact to light touch in both the upper and lower extremities, symmetrically. Bilateral plantar flexion response. Hoffmanns sign is negative. There is no ankle clonus ([facility] Card) Medications Current Medications Current Medications Medications (Trade) Dose Ordered Sig/Polo Route PRN Reason Start Time Stop Time Status Last Admin Dose Admin Enalaprilat (Vasotec Inj) 1.25 mg Q6H PRN IV SBP> OR = 180, DBP> OR = 100 11/23/16 19:00 Clonidine (Catapres) 0.1 mg Q6H PRN PO SBP> OR = 180, DBP> OR = 100 11/23/16 19:00 Sodium Chloride (NS Flush) 2 ml UNSCH PRN IV FLUSH FLUSH AFTER USING IV ACCESS 11/23/16 19:00 Sodium Chloride (NS Flush) 2 ml BID IV FLUSH 11/23/16 21:00 11/25/16 08:51 Acetaminophen (Tylenol) 650 mg Q4H PRN PO TEMP > 100.4 11/23/16 19:00 Ondansetron HCl (Zofran Inj) 4 mg Q6H PRN IVP NAUSEA OR VOMITING 11/23/16 19:00 Acetaminophen (Tylenol) 650 mg Q6H PRN PO PAIN SCALE 1 TO 2 11/23/16 19:00 Oxycodone HCl (Roxicodone) 10 mg Q4H PRN PO PAIN SCALE 6 TO 10 11/23/16 19:00 11/25/16 08:50 Hydromorphone HCl (Dilaudid Pf Inj) 0.2 mg Q3H PRN IV BREAKTHROUGH PAIN 11/23/16 19:00 Oxycodone HCl (Roxicodone) 5 mg Q4H PRN PO PAIN SCALE 3 TO 5 11/23/16 19:00 11/23/16 20:22 Naloxone HCl (Narcan Inj) 0.4 mg UNSCH PRN IV SEE LABEL COMMENTS 11/23/16 19:00 Senna/Docusate Sodium (Doris-Colace) 1 tab BID PO 11/23/16 21:00 11/24/16 20:36 Sennosides (Senokot) 17.2 mg Q12H PRN PO MODERATE - SEVERE CONSTIPATION 11/23/16 19:00 Hydrochlorothiazide (Hydrodiuril) 25 mg DAILY PO 11/24/16 09:00 11/25/16 08:49 Potassium Chloride (KCl) 40 meq DAILY PO 11/24/16 09:00 11/25/16 08:49 Sertraline HCl (Zoloft) 100 mg HS PO 11/23/16 21:00 11/24/16 20:35 Cholecalciferol (Vitamin D3) 2,000 units DAILY PO 11/24/16 09:00 11/25/16 08:50 Magnesium Oxide (Mag-Ox) 400 mg DAILY PO 11/24/16 09:00 11/25/16 08:49 Pantoprazole Sodium (Protonix) 20 mg DAILY PO 11/24/16 09:00 11/25/16 08:50 Pravastatin Sodium (Pravachol) 40 mg HS PO 11/23/16 21:00 11/24/16 20:35 Aspirin (Aspirin) 325 mg DAILY PO 11/25/16 09:00 11/25/16 08:50 Morphine Sulfate (Morphine Inj) 2 mg Q8H PRN IV PUSH BREAKTHROUGH PAIN 11/24/16 10:45 Gabapentin (Neurontin) 100 mg TID PO 11/24/16 13:00 11/25/16 08:50 Cyclobenzaprine HCl (Flexeril) 5 mg Q8H PRN PO muscle spams 11/24/16 10:45 11/25/16 08:50 Nortriptyline HCl (Pamelor) 25 mg HS PO 11/24/16 21:00 11/24/16 20:35 ([facility] Card) Medical Decision Making MDM Remarks 70 y/o male with multiple mild thoracic compression fractures, back pain improved, nonfocal exam ([facility] Card) Plan Plan Remarks cont nonsurgical mgt with TLSO when out of bed orthotech to refit for proper size cont therapy cont current care ([facility] Card) Attending Statement There is an area of enhancement which needs further workup. This could be done as outpatient. The exam, history, and the medical decision-making described in the above note were completed with the assistance of the mid-level provider. I reviewed and agree with the findings presented. I attest that I had a [id number] encounter with the patient on the same day, and personally performed and documented my assessment and findings in the medical record. (Tavo Hunter MD) [facility] Card Nov 25, 2016 13:10 Tavo Hunter MD Nov 25, 2016 18:37
== END 2016-11-25 13:28 | disposition home or self-care (01) ==
LOC: NEDDLT 15:48 → N05A 17:56
PROVIDERS: ADMIT Hospitalist; ATTEND Hospitalist
DX: S22.079A Unspecified fracture of T9-T10 vertebra, initial encounter for closed fracture (principal); E87.6 Hypokalemia; I10 Essential (primary) hypertension; E78.00 Pure hypercholesterolemia, unspecified; M51.24 Other intervertebral disc displacement, thoracic region; M43.8X4 Other specified deforming dorsopathies, thoracic region; M89.9 Disorder of bone, unspecified; J45.909 Unspecified asthma, uncomplicated; K21.9 Gastro-esophageal reflux disease without esophagitis; G47.30 Sleep apnea, unspecified; Z86.73 Personal history of transient ischemic attack (TIA), and cerebral infarction without residual deficits; Z79.899 Other long term (current) drug therapy; Z79.82 Long term (current) use of aspirin; Z85.46 Personal history of malignant neoplasm of prostate; Z92.3 Personal history of irradiation; W17.89XA Other fall from one level to another, initial encounter; Y93.E9 Activity, other interior property and clothing maintenance
CPT/HCPCS: 71010; 72128; 72131; 72157; 72170; 80048; 80053; 82550; 85025; 85610; 86850; 86900; 86901; 94150; 96374; 96375; 97110; 97116; 97162; 99285; A9579; G0378; G8987; G8988; J1170; J2405; L0200; L0484; 99281